=== PATIENT | male | born 1985 | race Caucasian/White ===

== ENCOUNTER 2018-11-09 10:10 | Inpatient (IN) | payer MEDICAID, OTHER ==
[~2018-11-09] VITALS: Ht 167.6 cm; Wt 83.0 kg
[2018-11-09] VITALS (15 sets, daily range): BP systolic 100–132; BP diastolic 44–71
[2018-11-09 10:48] LABS: CLARITY,URINE CLEAR (Clear); COLOR,URINE YELLOW (Yellow); GLUCOSE, URINE NEGATIVE (Neg); KETONES,URINE NEGATIVE (Neg); LEUKOCYTE ESTERASE ,URINE NEGATIVE (Neg); NITRITES, URINE NEGATIVE (Neg); OCCULT BLOOD,URINE NEGATIVE (Neg); PROTEIN,URINE TRACE mg/dl (Neg); UROBILINOGEN,URINE 0.2 E.U/dL (0.2-1.0)
[2018-11-09] MEDS ORDERED: ondansetron/PF 4mg/2ml inj IV ONE (10:50)
[2018-11-09] MEDS ORDERED: normal saline 1000ML IV soln IVB ONE (10:50)
[2018-11-09 10:53] LABS: UA COLLECTION TYPE CLN CATCH MIDSTREAM
[2018-11-09 10:54] LABS: BACTERIA,URINE NONE SEEN /HPF (Neg); MUCUS STRANDS MODERATE /LPF (Neg); RBC,URINE NONE SEEN /HPF (0-2); SQUAMOUS EPITHELIAL CELL,UR FEW /LPF (FEW); WBC,URINE 0-4 /HPF (0-4)
[2018-11-09] MEDS ORDERED: iohexol 300mg/ml 100ml inj. ONE (11:11)
[2018-11-09 11:14] LABS: BASOPHILS % (AUTO) 0.2 % (0-1); EOSINOPHILS % (AUTO) 0.3 % (0-6); HEMATOCRIT 45.9 % (42.0-52.0); HEMOGLOBIN 15.1 g/dl (14.0-17.9); LYMPHOCYTES # (AUTO) 0.7 X10'3 (1.1-4.8); LYMPHOCYTES % (AUTO) 5.2 % (21-51); MEAN CORPUSCULAR HEMOGLOBIN 28.4 PG (27.0-31.0); MEAN CORPUSCULAR HGB CONC 32.9 g/dL (33.0-36.5); MEAN CORPUSCULAR VOLUME 86.3 FL (78-98); MEAN PLATELET VOLUME 7.4 FL (7.4-10.4); NEUTROPHILS # (AUTO) 10.8 X10'3 (1.8-7.7); NEUTROPHILS % (AUTO) 86.3 % (42-75); PLATELET COUNT 229 X10'3 (140-440); RED BLOOD COUNT 5.32 X10'6 (4.70-6.10); RED CELL DISTRIBUTION WIDTH 13.3 % (11.5-14.5); WHITE BLOOD COUNT 12.5 X10'3 (4.5-11.0)
[2018-11-09] MEDS: morphine 2 MG/ML inj. syringe IV PRN ×2 (11:15→11:44)
[2018-11-09 11:25] LABS: ALANINE AMINOTRANSFERASE 23 U/L (12-78); ALBUMIN 4.1 G/DL (3.4-5.0); ALBUMIN/GLOBULIN RATIO 1.1 (1.1-1.5); ALKALINE PHOSPHATASE 57 IU/L (46-116); ANION GAP 11 (8-16); ASPARTATE AMINO TRANSFERASE 10 U/L (10-37); BILIRUBIN,TOTAL 0.6 MG/DL (0.1-1.0); BLOOD UREA NITROGEN 8 MG/DL (7-18); CALCIUM 9.3 MG/DL (8.5-10.1); CHLORIDE 101 MMOL/L (99-107); GLUCOSE 122 MG/DL (70-104); POTASSIUM 3.7 MMOL/L (3.5-5.1); SODIUM 138 MMOL/L (135-145); TOTAL CARBON DIOXIDE 26.5 MMOL/L (24-32); eGFR > 90 ML/MIN
[2018-11-09] MEDS ORDERED: NO HOME MEDS (12:38)
[2018-11-09] MEDS ORDERED: ondansetron/PF 4mg/2ml inj IV PRN ×3 (12:55→18:50)
[2018-11-09] MEDS ORDERED: acetaminophen 650mg rectal suppository RC PRN (12:55)
[2018-11-09] MEDS ORDERED: HYDROmorphone inj. 0.5 MG/0.5 ML DISP.SYRIN IV PRN (12:55)
[2018-11-09] MEDS: HYDROmorphone 1 mg/ml syringe IV PRN ×2 (13:07→20:15)
[2018-11-09] MEDS: normal saline 1000ml 1,000 ML IV SCH ×2 (13:31→22:52)
[2018-11-09] MEDS: piperacillin/tazo 3.375gm/50ml 50 ML IV SCH (16:00)
[2018-11-09] MEDS ORDERED: BUPIVAcaine/PF 2.5 mg/ml (0.25%) 30ml vial ONE (17:17)
[2018-11-09] MEDS ORDERED: ringers solution, lacted 1,000 ML IV SCH (17:23)
[2018-11-09] MEDS ORDERED: morphine 4 MG/ML inj SYRINge IV PRN ×2 (17:25)
[2018-11-09] MEDS ORDERED: proCHLORperazine 10 MG/2 ml inj IV PRN (17:25)
[2018-11-09] MEDS ORDERED: meperidine/PF 25mg/ml syringe IV PRN ×3 (17:25)
[2018-11-09] MEDS ORDERED: sevoflurane 250ml liquid IH ONE (17:32)
[2018-11-09] MEDS ORDERED: acetaminophen 1000 MG/100ml vial IV ONE (17:32)
[2018-11-09] MEDS ORDERED: fentaNYL/PF 50MCG/1 ML 2ML syringe ONE (17:35)
[2018-11-09] MEDS ORDERED: midazolam 2 mg/2 ml injection ONE (17:36)
[2018-11-09] MEDS ORDERED: propofol inj 20 ML IV ONE (17:36)
[2018-11-09] MEDS ORDERED: rocuronium 10mg/ml inj IV ONE (17:36)
[2018-11-09] MEDS ORDERED: ceFOXitin 2 GM ADDVANTGE BAG 50 ML IV ONE (17:55)
[2018-11-09] MEDS ORDERED: dexamethasone sod phosphate 4mg/ml inj. ONE (18:34)
[2018-11-09] MEDS ORDERED: ondansetron/PF 4mg/2ml inj ONE (18:34)
[2018-11-09] MEDS ORDERED: neostigmine methylsulfate 1 MG/ML 10ml vial ONE (18:36)
--- NOTE | 2018-11-09 18:39 | NUR ---
Patient in room [facility] 346. I have received report from Ekaterina APPLE and had the opportunity to ask questions and assume patient care. Pt currently in surgery with Dr Tate
--- NOTE | 2018-11-09 18:40 | NUR ---
Problems reprioritized. Patient report given, questions answered & plan of care reviewed with DAWIT APPLE. Addendum: 11/09/18 at 1842 by Latoya Mcmullen RN DISREGARD NOTE. WRONG NURSE
--- NOTE | 2018-11-09 18:43 | NUR ---
Problems reprioritized. Patient report given, questions answered & plan of care reviewed with AMILCAR APPLE.
[2018-11-09] MEDS ORDERED: glycopyrrolate 0.2mg/ml inj ONE (18:56)
--- NOTE | 2018-11-09 18:58 | NUR ---
Received from OR via , accompanied by Anesthesiologist JOSE and report given by Anesthesiolgist. AWAKENS EASILY IN NO RESP DISTRESS SKIN WARM AND DRY HOB ELEVATED, ABD SOFT DSG DI, NO CO PAIN. SHILOH DRAIN MOD SSD.
--- NOTE | 2018-11-09 19:55 | NUR ---
Received report from Naa APPLE in recovery. Pt arrived back on the unit with VSS, LR running @ 100, on 2L via NC, with no signs of distress. Family accompanied pt to room. Will continue to monitor.
--- NOTE | 2018-11-09 19:58 | NUR ---
Report called to receiving nurse. Transferred via [facility] . Special Issues communicated to receiving nurse.AWAKE VS WNL, ABD SOFT DSG DI, SHILOH EMPTIED FOR 5L. NO CO PAIN, SCDS ON. AT BS. TO ROOM 346B
[2018-11-09] MEDS: lactobacillus rhamnosus 10,000 MMU CELLS/CAPSULE PO SCH (20:00)
[2018-11-10] MEDS: piperacillin/tazo 3.375gm/50ml 50 ML IV SCH ×4 (00:08→23:21)
[2018-11-10 00:30] VITALS: BP 106/58
[2018-11-10] MEDS: normal saline 1000ml 1,000 ML IV SCH ×3 (03:09→23:32)
[2018-11-10] MEDS: HYDROcodone/acetaminophen 10/325mg tab PO PRN ×4 (03:16→23:26)
[2018-11-10 04:51] LABS: BASOPHILS % (AUTO) 0.1 % (0-1); EOSINOPHILS % (AUTO) 0 % (0-6); HEMATOCRIT 40.9 % (42.0-52.0); HEMOGLOBIN 13.5 g/dl (14.0-17.9); LYMPHOCYTES # (AUTO) 0.4 X10'3 (1.1-4.8); LYMPHOCYTES % (AUTO) 2.8 % (21-51); MEAN CORPUSCULAR HEMOGLOBIN 28.6 PG (27.0-31.0); MEAN CORPUSCULAR HGB CONC 32.9 g/dL (33.0-36.5); MEAN CORPUSCULAR VOLUME 86.7 FL (78-98); MEAN PLATELET VOLUME 7.6 FL (7.4-10.4); MONOCYTES # (AUTO) 0.9 X10'3 (0-0.9); NEUTROPHILS % (AUTO) 91.1 % (42-75); PLATELET COUNT 192 X10'3 (140-440); RED BLOOD COUNT 4.72 X10'6 (4.70-6.10); WHITE BLOOD COUNT 14.2 X10'3 (4.5-11.0)
[2018-11-10 05:01] LABS: ALANINE AMINOTRANSFERASE 16 U/L (12-78); ALBUMIN 3.2 G/DL (3.4-5.0); ALBUMIN/GLOBULIN RATIO 0.9 (1.1-1.5); ALKALINE PHOSPHATASE 41 IU/L (46-116); ANION GAP 9 (8-16); ASPARTATE AMINO TRANSFERASE 9 U/L (10-37); BILIRUBIN,TOTAL 0.8 MG/DL (0.1-1.0); BLOOD UREA NITROGEN 8 MG/DL (7-18); BUN/CREATININE RATIO 8.2 (5.4-32.0); CALCIUM 8.9 MG/DL (8.5-10.1); CHLORIDE 105 MMOL/L (99-107); CREATININE 0.97 MG/DL (0.60-1.10); GLUCOSE 200 MG/DL (70-104); POTASSIUM 4.1 MMOL/L (3.5-5.1); SODIUM 138 MMOL/L (135-145); TOTAL CARBON DIOXIDE 24.4 MMOL/L (24-32); TOTAL PROTEIN 6.9 G/DL (6.4-8.2); eGFR 90 ML/MIN
--- NOTE | 2018-11-10 06:42 | NUR ---
Problems reprioritized. Patient report given, questions answered & plan of care reviewed with Krystal RN.
--- NOTE | 2018-11-10 06:45 | NUR ---
Patient in room [facility] 346. I have received report from ZECHARIAH Padilla and had the opportunity to ask questions and assume patient care.
[2018-11-10 08:00] VITALS: BP 113/63
[2018-11-10] MEDS: lactobacillus rhamnosus 10,000 MMU CELLS/CAPSULE PO SCH ×2 (09:22→19:08)
[2018-11-10 11:00] VITALS: BP 105/53
--- NOTE | 2018-11-10 18:33 | NUR ---
Problems reprioritized. Patient report given, questions answered & plan of care reviewed with ZECHARIAH Padilla.
--- NOTE | 2018-11-10 18:50 | NUR ---
Patient in room [facility] 346. I have received report from Krystal APPLE and had the opportunity to ask questions and assume patient care.
[2018-11-10] MEDS: magnesium hydroxide 30ml (MOM) UD suspension PO SCH (19:10)
[2018-11-10 19:25] VITALS: BP 104/54
[2018-11-10] MEDS: HYDROmorphone 1 mg/ml syringe IV PRN (21:50)
[2018-11-11] VITALS: BP 109/59
[2018-11-11] MEDS: HYDROmorphone 1 mg/ml syringe IV PRN (05:14)
[2018-11-11 05:15] LABS: BASOPHILS % (AUTO) 0.2 % (0-1); EOSINOPHILS % (AUTO) 0.4 % (0-6); HEMATOCRIT 37.6 % (42.0-52.0); HEMOGLOBIN 12.3 g/dl (14.0-17.9); LYMPHOCYTES # (AUTO) 1.1 X10'3 (1.1-4.8); LYMPHOCYTES % (AUTO) 9.6 % (21-51); MEAN CORPUSCULAR HEMOGLOBIN 28.3 PG (27.0-31.0); MEAN CORPUSCULAR HGB CONC 32.7 g/dL (33.0-36.5); MEAN CORPUSCULAR VOLUME 86.7 FL (78-98); MEAN PLATELET VOLUME 7.6 FL (7.4-10.4); MONOCYTES # (AUTO) 0.9 X10'3 (0-0.9); MONOCYTES % (AUTO) 8.4 % (2-12); NEUTROPHILS % (AUTO) 81.4 % (42-75); PLATELET COUNT 174 X10'3 (140-440); RED BLOOD COUNT 4.33 X10'6 (4.70-6.10); RED CELL DISTRIBUTION WIDTH 13.4 % (11.5-14.5); WHITE BLOOD COUNT 11.1 X10'3 (4.5-11.0)
[2018-11-11 05:27] LABS: ALANINE AMINOTRANSFERASE 16 U/L (12-78); ALBUMIN 2.8 G/DL (3.4-5.0); ALBUMIN/GLOBULIN RATIO 0.8 (1.1-1.5); ALKALINE PHOSPHATASE 47 IU/L (46-116); ANION GAP 5 (8-16); ASPARTATE AMINO TRANSFERASE 6 U/L (10-37); BILIRUBIN,TOTAL 0.4 MG/DL (0.1-1.0); BLOOD UREA NITROGEN 10 MG/DL (7-18); BUN/CREATININE RATIO 12.5 (5.4-32.0); CALCIUM 8.3 MG/DL (8.5-10.1); CHLORIDE 107 MMOL/L (99-107); GLUCOSE 108 MG/DL (70-104); POTASSIUM 3.8 MMOL/L (3.5-5.1); SODIUM 140 MMOL/L (135-145); TOTAL PROTEIN 6.4 G/DL (6.4-8.2); eGFR > 90 ML/MIN
--- NOTE | 2018-11-11 06:00 | NUR ---
Patient in room [facility] 346. I have received report from ZECHARIAH Padilla and had the opportunity to ask questions and assume patient care.
--- NOTE | 2018-11-11 06:32 | NUR ---
Problems reprioritized. Patient report given, questions answered & plan of care reviewed with Safia APPLE.
[2018-11-11 07:18] VITALS: BP 115/68
[2018-11-11] MEDS: piperacillin/tazo 3.375gm/50ml 50 ML IV SCH ×3 (07:39→23:25)
[2018-11-11] MEDS: lactobacillus rhamnosus 10,000 MMU CELLS/CAPSULE PO SCH ×2 (07:40→19:32)
[2018-11-11] MEDS: magnesium hydroxide 30ml (MOM) UD suspension PO SCH ×2 (07:40→19:33)
[2018-11-11] MEDS: normal saline 1000ml 1,000 ML IV SCH (08:20)
[2018-11-11 11:00] VITALS: BP 97/44
[2018-11-11] MEDS: metoclopramide 5 mg/ml inj IV SCH ×2 (15:43→19:32)
[2018-11-11 18:00] VITALS: BP 114/66
--- NOTE | 2018-11-11 18:15 | NUR ---
Problems reprioritized. Patient report given, questions answered & plan of care reviewed with ZECHARIAH Padilla.
--- NOTE | 2018-11-11 18:55 | NUR ---
Patient in room [facility] 346. I have received report from Safia APPLE and had the opportunity to ask questions and assume patient care. Pt sitting up in bed eating his dinner. NS running @ 100. No signs of distress, will continue to monitor.
[2018-11-11] MEDS: HYDROcodone/acetaminophen 10/325mg tab PO PRN (19:32)
--- NOTE | 2018-11-11 19:52 | NUR ---
Pt refused MOM due to having 5 loose stools in the last couple of hours. Message noted. Will continue to monitor.
[2018-11-11 23:38] VITALS: BP 92/55
[2018-11-12] MEDS: normal saline 1000ml 1,000 ML IV SCH ×2 (02:07→10:52)
[2018-11-12] MEDS: metoclopramide 5 mg/ml inj IV SCH ×2 (02:08→08:45)
[2018-11-12 04:48] LABS: BASOPHILS % (AUTO) 0.2 % (0-1); EOSINOPHILS # (AUTO) 0.1 X10'3 (0-0.9); EOSINOPHILS % (AUTO) 1.2 % (0-6); HEMATOCRIT 35.9 % (42.0-52.0); HEMOGLOBIN 12.1 g/dl (14.0-17.9); LYMPHOCYTES # (AUTO) 1.1 X10'3 (1.1-4.8); LYMPHOCYTES % (AUTO) 11.3 % (21-51); MEAN CORPUSCULAR HEMOGLOBIN 29.2 PG (27.0-31.0); MEAN CORPUSCULAR HGB CONC 33.6 g/dL (33.0-36.5); MEAN CORPUSCULAR VOLUME 86.8 FL (78-98); MEAN PLATELET VOLUME 7.7 FL (7.4-10.4); MONOCYTES # (AUTO) 0.8 X10'3 (0-0.9); MONOCYTES % (AUTO) 8.2 % (2-12); NEUTROPHILS # (AUTO) 7.5 X10'3 (1.8-7.7); NEUTROPHILS % (AUTO) 79.1 % (42-75); PLATELET COUNT 202 X10'3 (140-440); RED BLOOD COUNT 4.13 X10'6 (4.70-6.10); RED CELL DISTRIBUTION WIDTH 13.1 % (11.5-14.5); WHITE BLOOD COUNT 9.5 X10'3 (4.5-11.0)
[2018-11-12 05:03] LABS: ALANINE AMINOTRANSFERASE 16 U/L (12-78); ALBUMIN 2.5 G/DL (3.4-5.0); ALBUMIN/GLOBULIN RATIO 0.7 (1.1-1.5); ALKALINE PHOSPHATASE 54 IU/L (46-116); ANION GAP 5 (8-16); ASPARTATE AMINO TRANSFERASE 8 U/L (10-37); BILIRUBIN,TOTAL 0.5 MG/DL (0.1-1.0); BLOOD UREA NITROGEN 9 MG/DL (7-18); BUN/CREATININE RATIO 10.7 (5.4-32.0); CALCIUM 7.8 MG/DL (8.5-10.1); CHLORIDE 106 MMOL/L (99-107); CREATININE 0.84 MG/DL (0.60-1.10); GLUCOSE 91 MG/DL (70-104); POTASSIUM 3.7 MMOL/L (3.5-5.1); SODIUM 139 MMOL/L (135-145); TOTAL CARBON DIOXIDE 28.2 MMOL/L (24-32); TOTAL PROTEIN 6.1 G/DL (6.4-8.2); eGFR > 90 ML/MIN
--- NOTE | 2018-11-12 06:17 | NUR ---
Problems reprioritized. Patient report given, questions answered & plan of care reviewed with Iliana APPLE.
[2018-11-12 08:00] VITALS: BP 120/79
[2018-11-12] MEDS: magnesium hydroxide 30ml (MOM) UD suspension PO SCH (08:00)
[2018-11-12] MEDS: lactobacillus rhamnosus 10,000 MMU CELLS/CAPSULE PO SCH (08:45)
[2018-11-12] MEDS: piperacillin/tazo 3.375gm/50ml 50 ML IV SCH (08:46)
[2018-11-12] MEDS: HYDROcodone/acetaminophen 10/325mg tab PO PRN (08:51)
[2018-11-12] MEDS ORDERED: AMOX-580 PO (09:50)
== END 2018-11-12 13:05 | disposition home or self-care (01) | DRG 234 ==
LOC: ER 10:11 → SUR 3N 16:01 → OBSVTOIN 16:01 → CMPBEDREQ 11-10 19:33
PROVIDERS: ADMIT Family Medicine; ATTEND Family Medicine
PROC: BW211ZZ Computerized Tomography (CT Scan) of Abdomen and Pelvis using Low Osmolar Contrast (ICD-10-PCS; 2018-11-09)
PROC: 0DTJ4ZZ Resection of Appendix, Percutaneous Endoscopic Approach (ICD-10-PCS; principal; 2018-11-09 17:32)
DX: K35.80 Unspecified acute appendicitis (principal); K56.7 Ileus, unspecified; Z80.3 Family history of malignant neoplasm of breast; Z82.49 Family history of ischemic heart disease and other diseases of the circulatory system; Z87.442 Personal history of urinary calculi
CPT/HCPCS: 36415; 74177; 80053; 81001; 85025; 85610; 87081; 96374; 96375; 96376; 99285; A4215; A4314; A4618; A6402; A7000; G0378; J0131; J0694; J1100; J1170; J2250; J2270; J2405; J2543; J2704; J2710; J2765; J3010; J3490; J7030; J7120; Q9967